=== PATIENT | male | born 1955 | race Caucasian/White ===

== ENCOUNTER 2017-05-19 15:00 | Inpatient (IN) | payer MEDICARE, MEDICAID ==
[~2017-05-19] VITALS: Ht 177.8 cm; Wt 82.1 kg
[2017-05-19] MEDS: IPRATROPIUM/ALBUTEROL 0.5-3(2.5)MG/3ML NEB HHN SCH (05:21)
[2017-05-19] MEDS ORDERED: SODIUM CHLORIDE 0.9% 1,000 ML IV ONE (17:01)
[2017-05-19 17:18] LABS: HEMATOCRIT. 43.2 % (42.0-52.0); HEMOGLOBIN. 14.6 g/dL (14.0-18.0); MEAN CORPUSCULAR HEMOGLOBIN 35.2 pg (28.0-32.0); MEAN CORPUSCULAR VOLUME 104.3 fL (80.0-94.0); MEAN PLATELET VOLUME 7.7 fl (7.4-10.4); PLATELET 277 x1000/uL (130-400); RED BLOOD CELL COUNT 4.15 mill/uL (4.7-6.1); RED CELL DISTRIBUTION WIDTH 14.3 % (11.6-14.6)
[2017-05-19 17:24] LABS: INR 1.1; PARTIAL THROMBOPLASTIN TIME 25.2 sec (23.4-31.0); PROTHROMBIN TIME 11.6 sec (9.4-11.6)
[2017-05-19 17:30] LABS: CARBON DIOXIDE 24 mEq/L (21-32); CHLORIDE 110 mEq/L (98-107)
[2017-05-19 17:33] LABS: TROPONIN I < 0.02 ng/mL (0.00-0.04)
[2017-05-19 17:39] LABS: PLATELET ESTIMATE NORMAL
[2017-05-19] MEDS ORDERED: POTASSIUM CHLORIDE 20MEQ TABLET SR PO ONE (18:45)
[2017-05-19] MEDS ORDERED: MAGNESIUM/ALUMINUM HYDROXIDE/SIMETHICONE 30ML UDC PO PRN (19:15)
[2017-05-19] MEDS ORDERED: IPRATROPIUM/ALBUTEROL 0.5-3(2.5)MG/3ML NEB INH PRN (19:15)
[2017-05-19] MEDS ORDERED: DOCUSATE SODIUM 100MG CAPSULE PO PRN (19:15)
[2017-05-19] MEDS ORDERED: NITROGLYCERIN 0.4MG TABLET SL SL PRN (19:15)
[2017-05-19] MEDS ORDERED: ACETAMINOPHEN 325MG TABLET PO PRN (19:15)
[2017-05-19] MEDS ORDERED: CLONIDINE 0.1MG TABLET PO PRN (19:15)
[2017-05-19] MEDS ORDERED: LORAZEPAM 2MG/ML CPJ IV PRN (19:15)
[2017-05-19 19:27] LABS: ETHANOL BLOOD < 10 mg/dL; HDL CHOLESTEROL 38 mg/dL (40-59); LDL CHOLESTEROL 111 mg/dL (5-100); T4 FREE 1.09 ng/dL (0.76-1.46)
[2017-05-19] MEDS ORDERED: ASPIRIN 325MG EC TABLET PO ONE (19:45)
[2017-05-19 19:48] LABS: FOLIC ACID (FOLATE) SERUM 9.6 ng/mL (>5.38)
[2017-05-19] MEDS ORDERED: KETOROLAC 15MG/ML VIAL IV PRN (20:00)
[2017-05-19] MEDS ORDERED: NA PHOS,M-B/NA PHOS,DI-BA ENEMA 118ML PR PRN (21:00)
[2017-05-19] MEDS: ENOXAPARIN 40MG/0.4ML SYR SUBCUT SCH ×2 (22:00→23:27)
[2017-05-19 22:10] LABS: CLARITY URINE CLEAR (CLEAR); COLOR URINE YELLOW (YELLOW); GLUCOSE URINE NEGATIVE (NEGATIVE); KETONES URINE 1+ (NEGATIVE); LEUKOCYTE ESTERASE URINE NEGATIVE (NEGATIVE); NITRITE URINE NEGATIVE (NEGATIVE); OCCULT BLOOD URINE NEGATIVE (NEGATIVE); PH URINE >=9.0 (4.5-8.0); PROTEIN URINE NEGATIVE (NEGATIVE); SPECIFIC GRAVITY URINE 1.014 (1.005-1.030)
[2017-05-19] MEDS ORDERED: OMEP20TA2 PO (22:17)
[2017-05-19] MEDS ORDERED: IBUP-2028 PO (22:17)
[2017-05-19] MEDS ORDERED: FURO20TA4 PO (22:17)
[2017-05-19] MEDS ORDERED: ASPI-867 PO (22:17)
[2017-05-19] MEDS ORDERED: TRAM50TA3 PO (22:17)
[2017-05-19] MEDS ORDERED: GABA-531 PO (22:17)
[2017-05-19 22:22] VITALS: BP 167/95
[2017-05-19 22:35] LABS: *AMPHETAMINES SCREEN URINE NEGATIVE (NEGATIVE); *BARBITURATES SCREEN URINE NEGATIVE (NEGATIVE); *BENZODIAZEPINES SCREEN URINE NEGATIVE (NEGATIVE); *COCAINE SCREEN URINE NEGATIVE (NEGATIVE); CANNABINOID URINE SCREEN PRESUMTIVE POSITIVE (NEGATIVE); METHADONE URINE SCREEN NEGATIVE (NEGATIVE); OPIATES URINE SCREEN NEGATIVE (NEGATIVE); PHENCYCLIDINE URINE SCREEN NEGATIVE (NEGATIVE)
[2017-05-19 23:18] VITALS: BP 132/96
[2017-05-19] MEDS: LISINOPRIL 20MG TABLET PO SCH (23:27)
[2017-05-19] MEDS: TRAMADOL 50MG TABLET PO PRN (23:27)
[2017-05-19] MEDS: FAMOTIDINE 20MG/2ML VIAL IV SCH (23:28)
[2017-05-19] MEDS: ONDANSETRON HCL 4MG/2ML VIAL IV PRN (23:28)
[2017-05-19] MEDS: DIPHENHYDRAMINE 50MG/ML VIAL IV PRN (23:28)
[2017-05-20 00:12] VITALS: BP 140/68
[2017-05-20 00:52] LABS: CREATINE KINASE MB FRACTION 5.6 ng/mL (0.5-3.6); TROPONIN I 0.03 ng/mL (0.00-0.04)
[2017-05-20 04:29] VITALS: BP 99/71
[2017-05-20] MEDS: IPRATROPIUM/ALBUTEROL 0.5-3(2.5)MG/3ML NEB HHN SCH ×4 (08:32→21:20)
[2017-05-20 09:09] LABS: CREATINE KINASE MB FRACTION 6.6 ng/mL (0.5-3.6); TROPONIN I 0.07 ng/mL (0.00-0.04)
[2017-05-20] MEDS: LISINOPRIL 20MG TABLET PO SCH ×2 (10:22→21:27)
[2017-05-20] MEDS: FAMOTIDINE 20MG/2ML VIAL IV SCH ×2 (10:23→21:26)
[2017-05-20] MEDS: ASPIRIN 325MG EC TABLET PO SCH (10:23)
[2017-05-20] MEDS: TRAMADOL 50MG TABLET PO PRN (10:32)
[2017-05-20 12:27] VITALS: BP 142/91
[2017-05-20 12:48] VITALS: BP 151/102
[2017-05-20] MEDS ORDERED: CLONIDINE 0.1MG TABLET PO PRN (13:00)
[2017-05-20] MEDS ORDERED: CLONIDINE 0.2MG TABLET PO PRN (13:00)
[2017-05-20] MEDS ORDERED: POTASSIUM CHLORIDE 20MEQ/PACKET PO NR (13:00)
[2017-05-20] MEDS ORDERED: KCL 20MEQ/100ML PREMIX 100 ML IV NR (15:00)
[2017-05-20 16:36] VITALS: BP 135/85
[2017-05-20] MEDS: AMLODIPINE 2.5MG TABLET PO SCH ×2 (16:57→21:26)
[2017-05-20] MEDS: ONDANSETRON HCL 4MG/2ML VIAL IV PRN (17:16)
[2017-05-20] MEDS: DIPHENHYDRAMINE 50MG/ML VIAL IV PRN (17:23)
[2017-05-20] MEDS ORDERED: MAGNESIUM 2 G PREMIX 50 ML IV NR (18:00)
[2017-05-20] MEDS ORDERED: POTASSIUM CHLORIDE 20MEQ TABLET SR PO NR (18:00)
[2017-05-20 19:52] VITALS: BP 153/109
[2017-05-20] MEDS: ENOXAPARIN 40MG/0.4ML SYR SUBCUT SCH (21:00)
[2017-05-20] MEDS: ZOLPIDEM TARTRATE 5MG TABLET PO PRN (22:44)
[2017-05-21 00:23] VITALS: BP 144/98
[2017-05-21] MEDS: IPRATROPIUM/ALBUTEROL 0.5-3(2.5)MG/3ML NEB HHN SCH ×6 (00:26→21:00)
[2017-05-21 05:04] VITALS: BP 113/82
[2017-05-21 07:14] LABS: BASOPHILS % 0.2 % (0.0-2.0); EOSINOPHILS % 0.2 % (0.0-5.0); HEMATOCRIT. 43.8 % (42.0-52.0); HEMOGLOBIN. 14.8 g/dL (14.0-18.0); LYMPHOCYTES % 10.8 % (20.0-50.0); MEAN CORPUSCULAR HEMOGLOBIN 35.4 pg (28.0-32.0); MEAN CORPUSCULAR VOLUME 104.7 fL (80.0-94.0); MEAN PLATELET VOLUME 7.9 fl (7.4-10.4); MONOCYTES % 6.6 % (2.0-8.0); NEUTROPHILS % 82.2 % (40.0-76.0); PLATELET 291 x1000/uL (130-400); RED BLOOD CELL COUNT 4.19 mill/uL (4.7-6.1); RED CELL DISTRIBUTION WIDTH 14.4 % (11.6-14.6)
[2017-05-21 07:53] LABS: CARBON DIOXIDE 26 mEq/L (21-32); CHLORIDE 100 mEq/L (98-107); CREATINE KINASE 951 IU/L (39-308); CREATINE KINASE MB FRACTION 7.1 ng/mL (0.5-3.6); HDL CHOLESTEROL 39 mg/dL (40-59); LDL CHOLESTEROL 119 mg/dL (5-100); TROPONIN I 0.06 ng/mL (0.00-0.04)
[2017-05-21 08:00] VITALS: BP 132/85
[2017-05-21] MEDS: POTASSIUM CHLORIDE 20MEQ TABLET SR PO SCH (09:36)
[2017-05-21] MEDS: ASPIRIN 325MG EC TABLET PO SCH (09:36)
[2017-05-21] MEDS: FAMOTIDINE 20MG/2ML VIAL IV SCH ×2 (09:36→20:52)
[2017-05-21] MEDS: AMLODIPINE 2.5MG TABLET PO SCH ×2 (09:36→20:52)
[2017-05-21] MEDS: LISINOPRIL 20MG TABLET PO SCH ×2 (09:37→20:52)
[2017-05-21 12:00] VITALS: BP 128/80
[2017-05-21] MEDS ORDERED: POTASSIUM CHLORIDE 20MEQ TABLET SR PO NR (15:15)
[2017-05-21 16:00] VITALS: BP 130/80
[2017-05-21 20:00] VITALS: BP 139/95
[2017-05-21] MEDS: GUAIFENESIN 200MG/10ML SUGAR FREE UDC PO PRN (20:51)
[2017-05-21] MEDS: ENOXAPARIN 40MG/0.4ML SYR SUBCUT SCH (20:52)
[2017-05-21] MEDS: ZOLPIDEM TARTRATE 5MG TABLET PO PRN (22:58)
[2017-05-22 00:29] VITALS: BP 133/90
[2017-05-22] MEDS: GUAIFENESIN 200MG/10ML SUGAR FREE UDC PO PRN (01:20)
[2017-05-22 04:00] VITALS: BP 127/96
[2017-05-22] MEDS: IPRATROPIUM/ALBUTEROL 0.5-3(2.5)MG/3ML NEB HHN SCH ×3 (04:52→08:35)
[2017-05-22 06:21] LABS: BASOPHILS % 0.4 % (0.0-2.0); EOSINOPHILS % 0.6 % (0.0-5.0); HEMATOCRIT. 46.6 % (42.0-52.0); HEMOGLOBIN. 15.9 g/dL (14.0-18.0); LYMPHOCYTES % 12.7 % (20.0-50.0); MEAN CORPUSCULAR HEMOGLOBIN 35.9 pg (28.0-32.0); MEAN PLATELET VOLUME 8.4 fl (7.4-10.4); MONOCYTES % 8.2 % (2.0-8.0); NEUTROPHILS % 78.1 % (40.0-76.0); PLATELET 312 x1000/uL (130-400); RED BLOOD CELL COUNT 4.43 mill/uL (4.7-6.1); RED CELL DISTRIBUTION WIDTH 14.8 % (11.6-14.6)
[2017-05-22 06:50] LABS: CARBON DIOXIDE 26 mEq/L (21-32); CHLORIDE 100 mEq/L (98-107)
[2017-05-22 08:00] VITALS: BP 108/67
[2017-05-22] MEDS: AMLODIPINE 2.5MG TABLET PO SCH (09:00)
[2017-05-22] MEDS: LISINOPRIL 20MG TABLET PO SCH (09:00)
[2017-05-22] MEDS: DIPHENHYDRAMINE 50MG/ML VIAL IV PRN (09:20)
[2017-05-22] MEDS: ASPIRIN 325MG EC TABLET PO SCH (09:24)
[2017-05-22] MEDS: FAMOTIDINE 20MG/2ML VIAL IV SCH (09:24)
[2017-05-22] MEDS: POTASSIUM CHLORIDE 20MEQ TABLET SR PO SCH (09:47)
[2017-05-22] MEDS: TRAMADOL 50MG TABLET PO PRN (10:31)
[2017-05-22] MEDS ORDERED: POTASSIUM CHLORIDE 20MEQ TABLET SR PO NR (13:45)
[2017-05-22] MEDS ORDERED: GABAPENTIN 300MG CAPSULE PO NR (13:45)
[2017-05-22 14:34] VITALS: BP 128/90
== END 2017-05-22 15:25 | disposition home health service (06) | DRG 74 ==
LOC: ER 15:17 → EDBEDREQTM 18:55 → 6WST 18:55 → EDBEDREQ 18:55 → SUPCPDRO 19:01 → ENRESERV 19:52 → EDBEDREQ 21:50
PROVIDERS: ADMIT Internal Medicine; ATTEND Internal Medicine
DX: G62.9 Polyneuropathy, unspecified (principal); E44.1 Mild protein-calorie malnutrition; R53.1 Weakness; K25.9 Gastric ulcer, unspecified as acute or chronic, without hemorrhage or perforation; I10 Essential (primary) hypertension; E87.6 Hypokalemia; F12.90 Cannabis use, unspecified, uncomplicated; F17.210 Nicotine dependence, cigarettes, uncomplicated; I25.10 Atherosclerotic heart disease of native coronary artery without angina pectoris; R26.2 Difficulty in walking, not elsewhere classified; J44.9 Chronic obstructive pulmonary disease, unspecified; Z82.49 Family history of ischemic heart disease and other diseases of the circulatory system; Z79.82 Long term (current) use of aspirin; Z79.899 Other long term (current) drug therapy; Z68.26 Body mass index [BMI] 26.0-26.9, adult; R07.89 Other chest pain
CPT/HCPCS: 36415; 70450; 71010; 80048; 80053; 80061; 80305; 81003; 82550; 82553; 82607; 82746; 83036; 83735; 83880; 84132; 84439; 84443; 84484; 85025; 85610; 85730; 87086; 92610; 93005; 93306; 93970; 94640; 96360; 96361; 97116; 97161; 99285; A6261; G0482; J1200; J1650; J2405; J3475; J3480; J3490; J7030; J7620

== ENCOUNTER 2020-01-28 13:28 | Inpatient (IN) | payer MEDICARE, MEDICAID ==
[~2020-01-28] VITALS: Ht 208.3 cm; Wt 90.7 kg
[~2020-01-28 13:28] MED LIST: ASPI325T85 PO; GABA-531 PO; IBUP-2028 PO; OMEP20TA2 PO; TRAM50TA3 PO
[2020-01-28] MEDS ORDERED: ONDANSETRON HCL 4MG/2ML INJ IV ONE ×2 (14:00→15:00)
[2020-01-28] MEDS ORDERED: SODIUM CHLORIDE 0.9% 1,000 ML IV ONE (14:00)
[2020-01-28 14:13] LABS: HEMATOCRIT. 44.6 % (42.0-52.0); HEMOGLOBIN. 15.3 g/dL (14.0-18.0); MEAN CORPUSCULAR HEMOGLOBIN 36.7 pg (28.0-32.0); MEAN CORPUSCULAR VOLUME 107.2 fL (80.0-94.0); MEAN PLATELET VOLUME 7.5 fl (7.4-10.4); PLATELET 197 x1000/uL (130-400); RED BLOOD CELL COUNT 4.16 mill/uL (4.7-6.1); RED CELL DISTRIBUTION WIDTH 17.3 % (11.6-14.6)
[2020-01-28 14:20] LABS: CHLORIDE 97 mEq/L (98-107)
[2020-01-28 14:23] LABS: INR 1.1; PARTIAL THROMBOPLASTIN TIME 28.2 sec (23.4-31.0)
[2020-01-28 14:37] LABS: PLATELET ESTIMATE NORMAL
[2020-01-28] MEDS ORDERED: KCL 20MEQ/100ML PREMIX 100 ML IV ONE (15:30)
[2020-01-28 15:55] LABS: CLARITY URINE CLEAR (CLEAR); COLOR URINE DARK YELLOW (YELLOW); KETONES URINE NEGATIVE (NEGATIVE); LEUKOCYTE ESTERASE URINE NEGATIVE (NEGATIVE); NITRITE URINE NEGATIVE (NEGATIVE); OCCULT BLOOD URINE NEGATIVE (NEGATIVE); PROTEIN URINE NEGATIVE (NEGATIVE); SPECIFIC GRAVITY URINE 1.013 (1.005-1.030)
[2020-01-28] MEDS: SODIUM CHLORIDE 0.45% 1,000 ML IV SCH (17:09)
[2020-01-28] MEDS ORDERED: ACETAMINOPHEN 325MG TABLET PO PRN (17:15)
[2020-01-28] MEDS ORDERED: DIPHENHYDRAMINE 50MG/ML VIAL IV PRN (17:15)
[2020-01-28] MEDS ORDERED: HYDROCODONE/ACETAMINOPHEN 5/325MG TABLET PO PRN (17:15)
[2020-01-28] MEDS ORDERED: NA PHOS,M-B/NA PHOS,DI-BA ENEMA 118ML PR PRN (17:15)
[2020-01-28] MEDS ORDERED: GUAIFENESIN 200MG/10ML SUGAR FREE UDC PO PRN (17:15)
[2020-01-28] MEDS ORDERED: DOCUSATE SODIUM 100MG CAPSULE PO PRN (17:15)
[2020-01-28] MEDS ORDERED: MAGNESIUM/ALUMINUM HYDROXIDE/SIMETHICONE 30ML UDC PO PRN (17:15)
[2020-01-28] MEDS ORDERED: CLONIDINE 0.1MG TABLET PO PRN (17:15)
[2020-01-28] MEDS ORDERED: ASPIRIN 81MG TABLET PO ONE (17:15)
[2020-01-28] MEDS ORDERED: LORAZEPAM 2MG/ML CPJ IV PRN (17:15)
[2020-01-28] MEDS ORDERED: IPRATROPIUM/ALBUTEROL 0.5-3(2.5)MG/3ML NEB NEB PRN (17:15)
[2020-01-28 22:30] VITALS: BP 137/78
[2020-01-28] MEDS: ONDANSETRON HCL 4MG/2ML INJ IV PRN (23:36)
[2020-01-29] VITALS: BP 118/66
[2020-01-29 00:49] LABS: CHLORIDE 96 mEq/L (98-107)
[2020-01-29] MEDS ORDERED: FAMOTIDINE 20MG TABLET PO PRN ×2 (01:15)
[2020-01-29] MEDS: HYDROMORPHONE HCL/PF 2MG/ML CPJ IV PRN ×2 (02:20→22:23)
[2020-01-29 04:00] VITALS: BP 118/66
[2020-01-29] MEDS ORDERED: POTASSIUM CHLORIDE 20MEQ TABLET SR PO NR ×2 (05:00→09:00)
[2020-01-29 06:35] LABS: CHLORIDE 96 mEq/L (98-107)
[2020-01-29 06:36] LABS: BASOPHILS % 0.2 % (0.0-2.0); HEMATOCRIT. 42.5 % (42.0-52.0); HEMOGLOBIN. 14.6 g/dL (14.0-18.0); LYMPHOCYTES % 9.7 % (20.0-50.0); MEAN CORPUSCULAR HEMOGLOBIN 36.7 pg (28.0-32.0); MEAN CORPUSCULAR VOLUME 106.6 fL (80.0-94.0); MEAN PLATELET VOLUME 7.8 fl (7.4-10.4); NEUTROPHILS % 85.1 % (40.0-76.0); PLATELET 193 x1000/uL (130-400); RED BLOOD CELL COUNT 3.99 mill/uL (4.7-6.1); RED CELL DISTRIBUTION WIDTH 17.8 % (11.6-14.6)
[2020-01-29 06:46] LABS: LDL CHOLESTEROL 116 mg/dL (5-100)
[2020-01-29 06:47] LABS: T4 FREE 0.97 ng/dL (0.76-1.46)
[2020-01-29 06:48] LABS: HDL CHOLESTEROL 30 mg/dL (40-59)
[2020-01-29 08:00] VITALS: BP 132/75
[2020-01-29] MEDS ORDERED: FAMOTIDINE 20MG TABLET PO SCH (09:00)
[2020-01-29] MEDS ORDERED: POTASSIUM CHLORIDE INJ 40 MEQ in DEXT 5% WATER 250 ML IV SCH (09:00)
[2020-01-29] MEDS: ASPIRIN 81MG EC TABLET PO SCH (09:21)
[2020-01-29] MEDS: ONDANSETRON HCL 4MG/2ML INJ IV PRN (14:41)
[2020-01-29 20:29] VITALS: BP 125/66
[2020-01-29] MEDS: SODIUM CHLORIDE 0.45% 1,000 ML IV SCH (22:23)
[2020-01-30 00:37] VITALS: BP 122/74
[2020-01-30 04:19] VITALS: BP 119/67
[2020-01-30 06:11] LABS: BASOPHILS % 0.2 % (0.0-2.0); HEMOGLOBIN. 13.3 g/dL (14.0-18.0); LYMPHOCYTES % 19.9 % (20.0-50.0); MEAN CORPUSCULAR HEMOGLOBIN 36.8 pg (28.0-32.0); MEAN CORPUSCULAR VOLUME 108.4 fL (80.0-94.0); MEAN PLATELET VOLUME 7.6 fl (7.4-10.4); MONOCYTES % 6.8 % (2.0-8.0); NEUTROPHILS % 72.1 % (40.0-76.0); PLATELET 163 x1000/uL (130-400); RED CELL DISTRIBUTION WIDTH 17.8 % (11.6-14.6)
[2020-01-30 06:40] LABS: CHLORIDE 98 mEq/L (98-107)
[2020-01-30 08:00] VITALS: BP 112/53
[2020-01-30] MEDS: ASPIRIN 81MG EC TABLET PO SCH (09:39)
[2020-01-30] MEDS: SODIUM CHLORIDE 0.45% 1,000 ML IV SCH ×2 (09:39→21:09)
[2020-01-30 11:14] LABS: T4 FREE 0.93 ng/dL (0.76-1.46)
[2020-01-30 12:00] VITALS: BP 146/76
[2020-01-30] MEDS ORDERED: DIPH50CA38 MT (14:42)
[2020-01-30] MEDS: PANTOPRAZOLE SODIUM 40 MG/VIAL IV SCH (14:49)
[2020-01-30] MEDS: GABAPENTIN 300MG CAPSULE PO SCH ×2 (14:50→21:09)
[2020-01-30 16:16] LABS: CREATINE KINASE 108 IU/L (39-308)
[2020-01-30 16:17] LABS: CREATINE KINASE MB FRACTION 2.9 ng/mL (0.5-3.6)
[2020-01-30 16:30] VITALS: BP 146/69
[2020-01-30 20:38] VITALS: BP 144/77
[2020-01-30] MEDS: ONDANSETRON HCL 4MG/2ML INJ IV PRN (21:10)
[2020-01-30] MEDS: HYDROMORPHONE HCL/PF 2MG/ML CPJ IV PRN (21:10)
[2020-01-30 23:58] LABS: CREATINE KINASE 88 IU/L (39-308)
[2020-01-30 23:59] LABS: CREATINE KINASE MB FRACTION 2.5 ng/mL (0.5-3.6)
[2020-01-31 00:08] VITALS: BP 101/58
[2020-01-31 04:00] VITALS: BP 98/46
[2020-01-31] MEDS: GABAPENTIN 300MG CAPSULE PO SCH ×2 (05:54→14:00)
[2020-01-31 06:40] LABS: BASOPHILS % 0.6 % (0.0-2.0); EOSINOPHILS % 1.5 % (0.0-5.0); HEMATOCRIT. 39.8 % (42.0-52.0); HEMOGLOBIN. 13.9 g/dL (14.0-18.0); LYMPHOCYTES % 25.9 % (20.0-50.0); MEAN CORPUSCULAR HEMOGLOBIN 37.2 pg (28.0-32.0); MEAN CORPUSCULAR VOLUME 106.9 fL (80.0-94.0); MEAN PLATELET VOLUME 7.7 fl (7.4-10.4); PLATELET 154 x1000/uL (130-400); RED BLOOD CELL COUNT 3.73 mill/uL (4.7-6.1); RED CELL DISTRIBUTION WIDTH 17.5 % (11.6-14.6)
[2020-01-31 07:12] LABS: CHLORIDE 99 mEq/L (98-107)
[2020-01-31 07:22] LABS: CREATINE KINASE 71 IU/L (39-308)
[2020-01-31 07:23] LABS: CREATINE KINASE MB FRACTION 1.2 ng/mL (0.5-3.6)
[2020-01-31 08:04] VITALS: BP 141/117
[2020-01-31] MEDS: PANTOPRAZOLE SODIUM 40 MG/VIAL IV SCH (09:11)
[2020-01-31] MEDS: ASPIRIN 81MG EC TABLET PO SCH (09:11)
[2020-01-31 12:00] VITALS: BP_SYST 112; BP_SYST 130; BP_DIAS 63; BP_DIAS 67
[2020-01-31 14:11] VITALS: BP 112/63
[2020-01-31 15:46] VITALS: BP 133/79
== END 2020-01-31 15:55 | disposition home or self-care (01) | DRG 641 ==
LOC: ER 13:44 → 6WST 15:41 → ENRESERV 20:35
PROVIDERS: ADMIT Internal Medicine; ATTEND Internal Medicine
DX: E86.0 Dehydration (principal); E87.6 Hypokalemia; I44.1 Atrioventricular block, second degree; G62.9 Polyneuropathy, unspecified; R33.9 Retention of urine, unspecified; R00.1 Bradycardia, unspecified; I10 Essential (primary) hypertension; I25.10 Atherosclerotic heart disease of native coronary artery without angina pectoris; J44.9 Chronic obstructive pulmonary disease, unspecified; R10.13 Epigastric pain; Z79.899 Other long term (current) drug therapy; Z87.891 Personal history of nicotine dependence; Z79.82 Long term (current) use of aspirin
CPT/HCPCS: 36415; 71045; 76700; 80048; 80053; 80061; 81003; 82550; 82553; 83036; 83880; 84439; 84443; 84484; 85025; 85379; 93005; 93306; 99285; C9113; J1170; J1200; J2060; J2405; J3480; J7030; J7060